=== PATIENT | male | born 1985 | race Caucasian/White ===

== ENCOUNTER 2017-08-28 06:17 | Day surgery (SDC) | payer OTHER ==
[2017-08-28] MEDS ORDERED: MIDAZOLAM 1 MG/ML 2 ML INJ (07:51)
[2017-08-28] MEDS ORDERED: FENTAnyl 50 MCG/ML VIAL ×2 (07:51→07:52)
[2017-08-28] MEDS ORDERED: LIDOCAINE 4% SOLUTION 50 ML BTL (07:51)
== END 2017-08-28 11:47 | disposition home or self-care (01) ==
LOC: GIL 06:17
DX: R13.14 Dysphagia, pharyngoesophageal phase (principal); I10 Essential (primary) hypertension; E78.5 Hyperlipidemia, unspecified; R12 Heartburn; K29.50 Unspecified chronic gastritis without bleeding; K29.80 Duodenitis without bleeding; K26.9 Duodenal ulcer, unspecified as acute or chronic, without hemorrhage or perforation; Z87.891 Personal history of nicotine dependence
CPT/HCPCS: 43239; 88305; 88312